=== PATIENT | male | born 1985 | race Caucasian/White ===

== ENCOUNTER 2024-10-12 02:03 | Emergency (ER) | payer BC, OTHER ==
[~2024-10-12] VITALS: Ht 188 cm; Wt 149.7 kg
[2024-10-12] MEDS ORDERED: GABA800 PO (02:13)
[2024-10-12] MEDS ORDERED: AMLO10 PO (02:13)
[2024-10-12] MEDS ORDERED: NAPR500 PO (02:13)
[2024-10-12] MEDS ORDERED: METF500 PO (02:13)
[2024-10-12] MEDS ORDERED: ATOR40TA PO (02:14)
[2024-10-12] MEDS ORDERED: LOSA50 PO (02:14)
[2024-10-12] MEDS ORDERED: PIOG30 PO (02:14)
[2024-10-12] MEDS ORDERED: FERSU300 PO (02:14)
[2024-10-12] MEDS ORDERED: HYDCHL25 PO (02:14)
[2024-10-12] MEDS ORDERED: INSULANPEN SC (02:15)
[2024-10-12 03:06] LABS: Influenza A, PCR NEGATIVE (NEGATIVE); Influenza B, PCR NEGATIVE (NEGATIVE); Resp Syncytial Virus, PCR NEGATIVE (NEGATIVE); SARS-Cov-2 (COVID-19) PCR, MMC NEGATIVE (NEGATIVE)
[2024-10-12] MEDS ORDERED: RX Prepack Albuterol 1 PREPACK/6.7 GM INH UD ONE (03:15)
[2024-10-12] MEDS ORDERED: DOXY100 PO (03:15)
[2024-10-12] MEDS ORDERED: BENZ100A PO (03:15)
== END 2024-10-12 03:23 | disposition home or self-care (01) ==
LOC: ER 02:03
PROVIDERS: Student in an Organized Health Care Education/Training Program
DX: J40 Bronchitis, not specified as acute or chronic (principal); J18.9 Pneumonia, unspecified organism; E11.9 Type 2 diabetes mellitus without complications; J45.909 Unspecified asthma, uncomplicated; I10 Essential (primary) hypertension; Z79.84 Long term (current) use of oral hypoglycemic drugs; Z79.899 Other long term (current) drug therapy; Z79.4 Long term (current) use of insulin
CPT/HCPCS: 0241U; 71046; 99283-25; A9270